=== PATIENT | female | born 1980 | race Caucasian/White ===

== ENCOUNTER 2023-12-13 21:20 | Emergency (ER) | payer MEDICARE, SELFPAY ==
[2023-12-13 21:21] VITALS: BMI 46.4
[2023-12-13 21:22] VITALS: BP 206/121
[2023-12-13 22:01] VITALS: BP 163/122
--- NOTE | 2023-12-13 22:05 | ED.GENMED ---
History of Present Illness
<MARLA Linares - Last Filed: 12/13/23 22:56>
General
Chief Complaint: Swelling
Time Seen by Provider: 12/13/23 22:05
History of Present Illness
History of Present Illness:
Patient is a 43 year old female presenting to the ED with complaints of weight gain for the past 4 months. She states in July she went to the doctors and was prescribed Wellbutrin, Seroquel, Topamax, and clonidine. The medication started to cause her
to gain weight and increase her blood pressure, so she stopped taking it around 2 months ago. Patient claims to have gained around 80 pounds since she stopped taking the medication. She also admits to knee pain/swelling and sob within the past week
and a half. The her knee has been swollen in the past, and went to the Doctors a month ago who said it was arthritis and gave her Tylenol. The Tylenol didn't help and the swelling has gotten worse the past week and a half. She has an 8/10 pain in
her knee when weight baring and a 5/10 while resting. The sob is worse with exertion. She also describes a generalized weakness when she tries to move. She denies chest pain palpitations light headedness numbness tingling fever abdominal pain nausea
vomiting changes in urinary frequency.
Patient denies any PMH of hypothyroidism, heart failure, HTN, but admits that she is a binge drinker and a former smoker. She claims that she would drink a lot in a short period of time, then go months without drinking. She denies any history of
withdrawal. Her LMP was November 25 and she claims it was normal.
Review of Systems
<MARLA Linares - Last Filed: 12/13/23 22:56>
Review of Systems
Constitutional: Reports weight gain
Respiratory: Reports trouble breathing (LYNCH)
Cardiac: Reports no symptoms
ABD/GI: Reports no symptoms
: Reports no symptoms
Musculoskeletal: Reports joint swelling (both knees swollen, more in the L knee) and muscle pain (pain in both knees, worse in L)
Neurological: Reports weakness (generalized )
Phy Exam
<MARLA Linares - Last Filed: 12/13/23 22:56>
General Physical Exam
General Presentation: moderate distress
General age: appears stated age
General Habitus: normal
General Mental: anxious
Cardiovascular Exam
Cardiovascular Exam: regular rate/rhythm, no edema, no gallop, no JVD and no murmur
Pulmonary Exam
Pulmonary Exam: lungs clear, no respiratory distress, no rales, chest non tender, no crackles, no rhonchi, no stridor, no wheezing and no cough
Gastrointestinal Exam
Gastrointestinal Exam: normal bowel sounds, non tender, soft, no organomegaly, no pulsatile mass and non distended
Sensory
Sensory Exam: intact (sensation intact along both lower extremities to light touch )
Musculoskeletal Exam
Musculoskeletal Exam: full ROM, joint swelling (largely swollen left knee) and other (pain with knee flexion and pain on palpation of quad tendon)
Course
<MARLA Linares - Last Filed: 12/13/23 22:56>
Orders/Labs/Results
Orders:
Orders
12/13/23 21:35
ECG [Electrocardiogram (*1)] Urgent
Reason for Study: Hypertension, Benign
EKG- Treatment ONCE
12/13/23 22:42
Test Result ONCE
US Periph Venous LOWER Ext Vin Urgent
Comment:
Reason For Exam: b/l LE edema
12/13/23 22:47
Alcohol Urgent
Complete Blood Count/With Diff Urgent
Comprehensive Metabolic Panel Urgent
D-Dimer Urgent
HCG, Serum Qualitative Screen Urgent
NT-proBNP Urgent
TSH Reflex To Free T4 Urgent
Troponin I Urgent
Urinalysis Reflex To Culture Urgent
Date Specimen was Collected: 12/13/23
Time Specimen was Collected: 22:46
Urine Drug Abuse Screen Urgent
Date Specimen was Collected: 12/13/23
Time Specimen was Collected: 22:46
12/14/23 00:01
CT Chest Pe Study Urgent
Reason For Exam: progressive LYNCH, tachycardia, elev d-dimer
12/14/23 02:30
Ibuprofen [Motrin] 600 mg PO NOW STA
Abnormal Lab Results
12/13/23
22:47
Absolute Neuts (auto) 7.8 H 10^3/uL
(1.4-6.5)
Lymphocytes % 20.1 L %
(20.5-51.1)
D-Dimer 0.82 H ug/mlFEU
(0.00-0.50)
Ur Tricyclics Screen Positive H
(Negative)
12/13/23 22:47
12/13/23 22:47
Vital Signs
Initial and Last Documented VS:
Initial Vital Signs
Temp Pulse BP Pulse Ox
99.6 F 110 206/121 99
12/13/23 21:22 12/13/23 21:22 12/13/23 21:22 12/13/23 21:22
Last Documented Vital Signs
Temp Pulse Resp BP Pulse Ox
99.6 F 83 13 161/81 99
12/13/23 21:22 12/14/23 01:00 12/14/23 01:00 12/14/23 01:00 12/14/23 01:00
<Madhuri Biswas DO - Last Filed: 12/14/23 02:36>
Orders/Labs/Results
Orders:
Orders
12/13/23 21:35
ECG [Electrocardiogram (*1)] Urgent
Reason for Study: Hypertension, Benign
EKG- Treatment ONCE
12/13/23 22:42
Test Result ONCE
US Periph Venous LOWER Ext Vin Urgent
Comment:
Reason For Exam: b/l LE edema
12/13/23 22:47
Alcohol Urgent
Complete Blood Count/With Diff Urgent
Comprehensive Metabolic Panel Urgent
D-Dimer Urgent
HCG, Serum Qualitative Screen Urgent
NT-proBNP Urgent
TSH Reflex To Free T4 Urgent
Troponin I Urgent
Urinalysis Reflex To Culture Urgent
Date Specimen was Collected: 12/13/23
Time Specimen was Collected: 22:46
Urine Drug Abuse Screen Urgent
Date Specimen was Collected: 12/13/23
Time Specimen was Collected: 22:46
12/14/23 00:01
CT Chest Pe Study Urgent
Reason For Exam: progressive LYNCH, tachycardia, elev d-dimer
12/14/23 02:30
Ibuprofen [Motrin] 600 mg PO NOW STA
Abnormal Lab Results
12/13/23
22:47
Absolute Neuts (auto) 7.8 H 10^3/uL
(1.4-6.5)
Lymphocytes % 20.1 L %
(20.5-51.1)
D-Dimer 0.82 H ug/mlFEU
(0.00-0.50)
Ur Tricyclics Screen Positive H
(Negative)
12/13/23 22:47
12/13/23 22:47
Vital Signs
Initial and Last Documented VS:
Initial Vital Signs
Temp Pulse BP Pulse Ox
99.6 F 110 206/121 99
12/13/23 21:22 12/13/23 21:22 12/13/23 21:22 12/13/23 21:22
Last Documented Vital Signs
Temp Pulse Resp BP Pulse Ox
99.6 F 83 13 161/81 99
12/13/23 21:22 12/14/23 01:00 12/14/23 01:00 12/14/23 01:00 12/14/23 01:00
<MARLA Linares - Last Filed: 12/13/23 22:56>
MDM/Problems Addressed
Differential Diagnosis Includes:
hypothyroidism, heart failure, illicit drug abuse, PE, alcohol withdrawal
MDM/Problems Addressed:
order blood work ekg thyroid levels and urine drug screen
<MARLA Linares - Last Filed: 12/13/23 22:56>
*Critical Care Note
Total Time (30-74mins, 75-104mins- exclusive of procedures): Not Applicable
<Madhuri Biswas DO - Last Filed: 12/14/23 02:36>
*Radiology
Radiology exam reviewed: radiology read reviewed
*Pulse Oximetry
Patient hypoxic: no
*EKG
Interpreted by ED Provider?: Yes
Comparison EKG: no comparison EKG present
Rate: tachycardiac
Rhythm: sinus
[place]: normal axis
Interval: normal interval
QRS Pattern: normal QRS
Ischemia: no ischemia
*R[employer]ting [employer] Tender Interpretation
Rate: tachycardiac
Interpretation: abnormal
Rhythm: sinus
ED Attending Note
<MARLA Linares - Last Filed: 12/13/23 22:56>
-
Portions of this chart may have been created with voice recognition software.� Occasional wrong word or��sound alike� substitutions may have occurred due to the inherent limitations of voice recognition software.
<Madhuri Biswas DO - Last Filed: 12/14/23 02:36>
ED Attending Note
Patient seen and examined by attending physician: Yes
I performed the substantive portion of visit, reviewed & personally made and approve the management plan that is documented in note by myself or JOELLEN.: Yes
ED Attending Note:
This is a 43-year-old woman with history of sporadic alcohol abuse primarily binge drinking as well as history of methamphetamine use. She admits to significant stress after the of her children's father last year which she states then led to
alcohol and methamphetamine abuse. Early July she was brought to [facility] ED due to confusion, change in mental status, UDS positive for methamphetamines, she was 302 and admitted to [facility] where she was started on clonidine,
Wellbutrin, Topamax, Seroquel. She continues to follow with a therapist and has remained sober over the past 3 months but admits to significant weight gain since initiating these medications in July. Weight gain persists despite discontinuing
Topamax and Seroquel 1 month ago. Weight gain associated with progressive dyspnea on exertion, progressive swelling bilateral lower extremities, progressive exercise intolerance. She has not had a fever nor chills, she denies cough. She denies
chest pain but notes significant dyspnea with only mild exertion.
Her weight in early July was 103 kg, currently at 134 kg
She denies risk of , last menstrual period normal and on time November 25.
She quit smoking since hospitalization at [facility].
She does have a history of some chronic left knee pain with previous evaluation, diagnosed with DJD. She complains of increased left knee pain over the past few months. No recent fall nor injury.
GENERAL: 43-year-old woman appears somewhat older than stated age, awake and alert, mildly to moderately anxious but easily communicative. Cooperative.
EYE: pupils equal and reactive. Questionable mild exophthalmos noted. Anicteric
NECK: Supple, nontender, no meningismus, no significant adenopathy. No JVD.
ENT: Missing multiple teeth. Posterior pharynx is clear, oral mucosa is moist. No rhinorrhea.
CARDIAC: Regular rhythm, mildly tachycardic. no murmur.
LUNGS: Clear breath sounds bilaterally, no acute respiratory distress, no wheezes/rales/rhonchi
ABDOMEN: Rotund, soft, nondistended, without focal tenderness, no r/g, no cvat. normoactive BS.
NEUROLOGICAL: Alert and oriented x3, no focal neuro deficits.
SKIN: Warm and dry, normal color, skin intact. No rash.
MUSCULOSKELETAL: Moderate nonpitting edema bilateral lower extremities. Peripheral pulses are full and equal b/l. Mild tenderness left anterior superior knee. No palpable joint effusion, no erythema.
PSYCH: Normal and appropriate interaction.
Concern for weight gain related to psychiatric medications, concern for thyroid disorder, cardiomyopathy/CHF, PE, DVT, anemia, recurrent drug use is also a possibility.
Patient is mildly anxious but no evidence of toxidrome, no convincing evidence of alcohol withdrawal.
Will check labs including D-dimer, thyroid function, BNP, troponin, UDS, alcohol.
Will check venous Doppler bilateral lower extremities.
EKG shows mild sinus tachycardia otherwise unremarkable. No old EKGs to compare.
12/14/2023 0234 AM
Patient has been resting comfortably throughout ED stay.
Overall workup is unremarkable. Labs within normal limits save for minimally elevated D-dimer thus CT of the chest obtained which shows no evidence of PE.
BNP is normal. Troponin is negative.
Ultrasound bilateral lower extremities negative for DVT.
I suspect patient's weight gain is a combination of psychiatric medication as well as discontinuing cigarettes.
Significant hypertension has improved but not completely normalized. She continues with modest systolic hypertension with normal diastolic readings and sinus tachycardia has resolved.
Recommend prompt follow-up with PCP for recheck.
Encouraged weight loss strategies and to discuss further with her PCP.
Discharge Plan
Departure
Patient Disposition: Home (Routine Discharge)
Date of Disposition: 12/14/23
Time of Disposition: 02:32
Patient with high blood pressure during this ER visit?: Yes
Condition: Good
Discharge Problem:
Abnormal weight gain, Hypertension, Dyspnea on exertion
Instructions: High Blood Pressure (DC), Weight loss treatments
Referrals:
Keren Israel PA [Family Provider] - Call in 1-3 days for appt
Interventions
Interventions:
*Risk Screen - Suicide Last Done: 12/13/23 21:31
*Neglect/Abuse Screening Last Done: 12/13/23 21:31
ED- Fall Risk Assessment Last Done: 12/13/23 22:03
ED- Cardiac Assessment Last Done: 12/13/23 22:03
ED- Neurological Assessment Last Done: 12/13/23 22:03
ED- Pulmonary Assessment Last Done: 12/13/23 22:03
ED-Skin Assessment Last Done: 12/13/23 22:03
Discharge Date and Time
Print Language: MALAY
[2023-12-13 22:08] VITALS: BP 168/117
[2023-12-13 22:55] LABS: % Basophils 0.4 % (0-2); % Eosinophils 1.4 % (0-6); % Immature Granulocytes 0.4 % (0-0.5); % Lymphocytes 20.1 % (20.5-51.1); % Monocytes 5.1 % (1.7-9.3); % Neutrophils 72.6 % (42.2-75.2); Absolute Eosinophils 0.2 10^3/uL (0-0.7); Absolute Lymphocytes 2.2 10^3/uL (1.2-3.4); Absolute Monocytes 0.6 10^3/uL (0.1-0.6); Absolute Neutrophils 7.8 10^3/uL (1.4-6.5); Hematocrit 40.6 % (37.0-47.0); Hemoglobin 13.8 g/dL (12.0-16.0); Mean Corpuscular Hgb 29.4 pg (27.0-31.0); Mean Corpuscular Volume 86.4 fL (81.0-99.0); Mean Platelet Volume 9.8 fL (7.4-10.4); Nucleated Red Blood Cells % 0 %; Platelet Count 309 10^3/uL (130-400); Red Cell Dist. Width 12.5 % (11.5-14.5); White Blood Cell Count 10.7 10^3/uL (4.8-10.8)
[2023-12-13 22:58] LABS: Urine Albumin Negative (Neg - Trace); Urine Bilirubin Negative (Negative); Urine Character Clear (Clear); Urine Color Straw; Urine Glucose Negative (Negative); Urine Ketone Negative (Negative); Urine Leukocyte Negative (Negative); Urine Nitrite Negative (Negative); Urine Occult Blood Negative (Negative); Urine Urobilinogen Negative (Neg - 1+)
[2023-12-13 23:08] LABS: D-Dimer 0.82 ug/mlFEU (0.00-0.50)
[2023-12-13 23:12] LABS: HCG, Serum Qualitative Screen Negative
[2023-12-13 23:16] LABS: Amphetamines Negative (Negative); Barbiturates Negative (Negative); Benzodiazepines Negative (Negative); Buprenorphine Negative (Negative); Cocaine Negative (Negative); Marijuana Negative (Negative); Methadone Negative (Negative); Methamphetamines Negative (Negative); Opiates Negative (Negative); Phencyclidine Negative (Negative); Tricyclic Antidepressants Positive (Negative)
[2023-12-13 23:18] LABS: NT-proBNP 231 pg/ml; Troponin I < 0.012 ng/ml
[2023-12-13 23:21] LABS: ALT (SGPT) 11 U/L (0-35); AST (SGOT) 17 U/L (14-36); Albumin 4.2 g/dl (3.5-5.0); Alkaline Phosphatase 102 U/L (38-126); Blood Urea Nitrogen 10 mg/dl (7-17); Calcium 10.1 mg/dl (8.4-10.2); Carbon Dioxide 25 mmol/L (22-30); Chloride 105 mmol/L (98-107); Estimated Creatinine Clearance > 125 ml/min; Glucose 90 mg/dl (70-99); Sodium 141 mmol/L (135-145); Total Bilirubin 0.3 mg/dl (0.2-1.3); Total Protein 6.7 g/dl (6.3-8.2); eGFR > 60.00
[2023-12-13 23:24] LABS: Alcohol None Detected
[2023-12-13 23:50] LABS: TSH Reflex To Free T4 2.69 uIU/ml (0.47-4.68)
[2023-12-14 00:48] VITALS: BP 157/80
[2023-12-14 01:00] VITALS: BP 161/81
[2023-12-14 01:30] VITALS: BP 160/87
[2023-12-14] MEDS: MOTRIN 600 MG PO (02:45)
== END 2023-12-14 02:57 | disposition home or self-care (01) ==
LOC: EMR 21:20
PROVIDERS: EMERGENCY PHYSICIAN Emergency Medicine; FAMILY PHYSICIAN Physician Assistant Medical
DX: R63.5 Abnormal weight gain (principal); I10 Essential (primary) hypertension; R06.09 Other forms of dyspnea; Z87.891 Personal history of nicotine dependence; R60.0 Localized edema
CPT/HCPCS: 99284; 71275; 80053; 80306; 81003; 82077; 83880; 84443; 84484; 84703; 85025; 85379; 93005; 93970; Q9967